=== PATIENT | female | born 1955 | race Caucasian/White ===

== ENCOUNTER 2016-09-27 13:25 | Outpatient (CLI) | payer BC, OTHER | END 2016-09-27 23:59 | DX: E78.2 Mixed hyperlipidemia (principal); Z79.899 Other long term (current) drug therapy ==

== ENCOUNTER 2016-10-17 13:12 | Outpatient (CLI) | payer OTHER | END 2016-10-17 13:13 | disposition home or self-care (01) | DX: M77.31 Calcaneal spur, right foot (principal) ==

== ENCOUNTER 2017-05-28 13:01 | Outpatient (CLI) | payer OTHER ==
[2017-05-28 13:13] LABS: BASOPHILS # (AUTO) 0.1 10^3/uL (0.0-0.1); BASOPHILS % (AUTO) 1.2 %; EOSINOPHILS # (AUTO) 0.4 10^3/uL (0.0-0.7); EOSINOPHILS % (AUTO) 7.4 %; HCT - HEMATOCRIT 42.1 % (37.0-47.0); HGB - HEMOGLOBIN 14.2 g/dL (12.0-16.0); LYMPHOCYTES # (AUTO) 1.5 10^3/uL (1.5-3.5); LYMPHOCYTES % (AUTO) 27.3 %; MEAN CORPUSCULAR HEMOGLOBIN 31.3 pg (27.0-31.0); MEAN CORPUSCULAR HGB CONC 33.7 g/dL (32.0-36.0); MEAN CORPUSCULAR VOLUME 92.9 fL (81.0-99.0); MEAN PLATELET VOLUME 8.1 fL (7.9-10.8); MONOCYTES # (AUTO) 0.4 10^3/uL (0.0-1.0); NEUTROPHILS % (AUTO) 57.1 %; NUCLEATED RED BLOOD CELLS AUTO 0.1 /100WBC; RED BLOOD COUNT 4.53 10^6/uL (4.20-5.40); RED CELL DISTRIBUTION WIDTH 13.2 % (12.0-15.0); UNCORRECTED WHITE BLOOD COUNT 5.3 x10^3/uL; WHITE BLOOD COUNT 5.3 x10^3/uL (4.8-10.8)
[2017-05-28 13:39] LABS: ALBUMIN/GLOBULIN RATIO 1.5 (1.0-2.2); BILIRUBIN,TOTAL 0.4 mg/dL (0.2-1.0); BUN - BLOOD UREA NITROGEN 11 mg/dL (6-20); CALCIUM 9.4 mg/dL (8.5-10.3); CARBON DIOXIDE - CO2 25 mmol/L (21-32); CHLORIDE 102 mmol/L (101-111); CHOL/HDL RATIO 5.2 (<4.4); CHOLESTEROL 324 mg/dL; CREATININE 0.6 mg/dL (0.4-1.0); GFR - MDRD 102 (>89); GLUCOSE 83 mg/dL (70-100); HDL CHOLESTEROL 62 mg/dL; LDL/HDL RATIO 3.3 (<4.4); POTASSIUM 3.9 mmol/L (3.5-5.0); SODIUM 137 mmol/L (135-145); TOTAL PROTEIN 7.2 g/dL (6.7-8.2); TRIGLYCERIDES 291 mg/dL; VLDL CHOLESTEROL 58 mg/dL
== END 2017-05-28 13:02 | disposition home or self-care (01) ==
LOC: LAB.R 13:01
PROVIDERS: ATTEND Physician Assistant Medical
DX: E55.9 Vitamin D deficiency, unspecified (principal); Z79.899 Other long term (current) drug therapy; I10 Essential (primary) hypertension; E78.2 Mixed hyperlipidemia; Z11.59 Encounter for screening for other viral diseases; E03.9 Hypothyroidism, unspecified
CPT/HCPCS: 80053; 80061; 82306; 84443; 85025; 86803

== ENCOUNTER 2017-08-01 09:32 | Outpatient (CLI) | payer OTHER | END 2017-08-01 09:33 | disposition home or self-care (01) | LOC: LAB.R 09:32 | PROVIDERS: ATTEND Physician Assistant Medical | DX: E03.9 Hypothyroidism, unspecified (principal); Z79.899 Other long term (current) drug therapy | CPT/HCPCS: 84443 ==

== ENCOUNTER → 2018-06-09 | Outpatient (CLI) | payer OTHER ==
[2018-06-09 14:18] LABS: BASOPHILS # (AUTO) 0.1 10^3/uL (0.0-0.1); EOSINOPHILS # (AUTO) 0.4 10^3/uL (0.0-0.7); EOSINOPHILS % (AUTO) 7.9 %; HGB - HEMOGLOBIN 13.5 g/dL (12.0-16.0); LYMPHOCYTES # (AUTO) 1.5 10^3/uL (1.5-3.5); LYMPHOCYTES % (AUTO) 28.5 %; MEAN CORPUSCULAR HEMOGLOBIN 31.4 pg (27.0-31.0); MEAN CORPUSCULAR HGB CONC 34.5 g/dL (32.0-36.0); MEAN PLATELET VOLUME 7.6 fL (7.9-10.8); MONOCYTES # (AUTO) 0.5 10^3/uL (0.0-1.0); MONOCYTES % (AUTO) 9.2 %; NEUTROPHILS # (AUTO) 2.9 10^3/uL (1.5-6.6); NEUTROPHILS % (AUTO) 53.4 %; PLT - PLATELET COUNT 354 10^3/uL (130-450); RED CELL DISTRIBUTION WIDTH 12.6 % (12.0-15.0); WHITE BLOOD COUNT 5.4 x10^3/uL (4.8-10.8)
[2018-06-09 14:36] LABS: ALBUMIN/GLOBULIN RATIO 1.4 (1.0-2.2); ALKALINE PHOSPHATASE 64 IU/L (42-121); ALT ALANINE AMINOTRANSFERASE 44 IU/L (10-60); AST ASPARTATE AMINOTRANSFERASE 25 IU/L (10-42); BILIRUBIN,TOTAL 0.6 mg/dL (0.2-1.0); BUN - BLOOD UREA NITROGEN 18 mg/dL (6-20); CALCIUM 9.3 mg/dL (8.5-10.3); CARBON DIOXIDE - CO2 29 mmol/L (21-32); CHLORIDE 104 mmol/L (101-111); CHOL/HDL RATIO 4.9 (<4.4); CHOLESTEROL 277 mg/dL; CREATININE 0.5 mg/dL (0.4-1.0); GFR - MDRD 125 (>89); GLUCOSE 86 mg/dL (70-100); HDL CHOLESTEROL 56 mg/dL; LDL CHOLESTEROL,CALCULATED 179 mg/dL; LDL/HDL RATIO 3.2 (<4.4); SODIUM 140 mmol/L (135-145); TOTAL PROTEIN 6.8 g/dL (6.7-8.2); VLDL CHOLESTEROL 42 mg/dL
== END ==
LOC: LAB.R 08:30
PROVIDERS: ATTEND Physician Assistant Medical
DX: Z00.00 Encounter for general adult medical examination without abnormal findings (principal); E55.9 Vitamin D deficiency, unspecified; Z79.899 Other long term (current) drug therapy; E03.9 Hypothyroidism, unspecified
CPT/HCPCS: 80053; 80061; 82306; 83721; 84443; 85025

== ENCOUNTER 2018-07-10 08:00 | Outpatient (CLI) | payer OTHER ==
[2018-07-10 12:25] LABS: ALT ALANINE AMINOTRANSFERASE 29 IU/L (10-60); AST ASPARTATE AMINOTRANSFERASE 21 IU/L (10-42); LDL CHOLESTEROL,DIRECT 142 mg/dL
== END 2018-07-10 23:59 | disposition home or self-care (01) ==
LOC: LAB.R 08:00
PROVIDERS: ATTEND Physician Assistant Medical
DX: E78.2 Mixed hyperlipidemia (principal); Z79.899 Other long term (current) drug therapy; E03.9 Hypothyroidism, unspecified
CPT/HCPCS: 83721; 84443; 84450; 84460

== ENCOUNTER 2018-08-16 20:39 | Emergency (ER) | payer OTHER ==
[2018-08-16 20:55] VITALS: BP 147/79
--- NOTE | 2018-08-16 21:24 | ED Physician Documentation ---
PD HPI LOWER EXT INJURY - Stated complaint Stated Complaint: L KNEE PX/FALL - Chief complaint Chief Complaint: Trauma Ext - History obtained from History obtained from: Patient - History of Present Illness PD HPI LOW EXT INJURY LOCATION: Other (She tripped over her dog's leash this evening and landed knees first onto a hardwood floor with left greater than right knee pain but she is able to walk and bear weight but there is a lot of swelling to the left knee. No other injuries.) Review of Systems Constitutional: reports: Reviewed and negative Cardiac: reports: Reviewed and negative Respiratory: reports: Reviewed and negative PD PAST MEDICAL HISTORY - Past Medical History HEENT: None - Present Medications Home Medications: Ambulatory Orders Medication Instructions Recorded Confirmed Aspirin [Floresita Chewable] 81 mg PO DAILY 05/05/14 05/05/14 Cholecalciferol (Vitamin D3) 2,000 unit PO DAILY 05/05/14 05/05/14 [Vitamin D3] Loratadine [Claritin] 10 mg PO DAILY 05/05/14 05/05/14 Multivit-Min/FA/Lycopene/Lut 1 each PO DAILY 05/05/14 05/05/14 [Centrum Silver Tablet] Mcclure-3 Fatty Acids [Fish Oil] 500 mg PO DAILY 05/05/14 05/05/14 RX: Lovastatin 20 mg PO DAILY 05/05/14 05/05/14 Fluticasone [Flonase] 2 sprays EDITH BID 05/06/14 05/06/14 Levothyroxine [Synthroid] 150 mcg PO QDAC 05/06/14 05/06/14 RX: Potassium 99 mg PO DAILY 05/06/14 05/06/14 - Allergies Allergies/Adverse Reactions: Allergies Allergy/AdvReac Type Severity Reaction Status Date / Time No Known Drug Allergies Allergy Verified 05/05/14 13:27 PD ED PE NORMAL - Vitals Vital signs reviewed: Yes - General General: Alert and oriented X 3, No acute distress - Extremities Extremities: Other (Right knee is mildly tender over the medial joint line without ligamentous laxity. Left knee has a large prepatellar bursal effusion with underlying patellar tenderness and some pain with range of motion but no ligamentous laxity.) - Neuro Neuro: Alert and oriented X 3, Normal speech Results - Vitals Vitals: Vital Signs - 24 hr 08/16/18 20:52 Temperature 36.4 C L Heart Rate 89 Respiratory 16 Rate Blood Pressure 147/79 H O2 Saturation 99 Oxygen O2 Source Room air - Rads (name of study) B knee 4v Radiology: EMP read contemporaneously (Left knee bursal effusion without fracture) Departure - Departure Disposition: 01 Home, Self Care Clinical Impression: Contusion of right knee, Contusion of left knee Condition: Good Record reviewed to determine appropriate education?: Yes Instructions: ED Contusion Soft Tissue Comments: Call your doctor to arrange a follow-up appointment, make the next available appointment. In the interim, return anytime if worse or if new symptoms develop. Your blood pressure was elevated today on check into the emergency department. This does not mean that you have hypertension, it is a common phenomenon to come to the emergency department and have elevated blood pressure. I recommend that you see your primary care physician within the week to have it rechecked when you are feeling better. Discharge Date/Time: 08/16/18 22:30
--- NOTE | 2018-08-16 22:09 | XRAY Report ---
Reason: knee inj Procedure Date: 08/16/2018 Accession Number: [id number] / [id number] Procedure: XR - Knee 4 View BILAT CPT Code: FULL RESULT: EXAMS: 1. Right Knee Radiography 2. Left Knee Radiography EXAM DATE:08/16/2018 09:39 PM. CLINICAL HISTORY:Bilateral knee pain, left greater than right, after ground-level fall today. Left knee swelling. COMPARISON: None. TECHNIQUE: 4 views each. FINDINGS: Right Knee: Bones: Suprapatellar and infrapatellar spurs. No fracture or bone lesion. Joints: Normal alignment. Minimal osteophytosis in the medial compartment. Joint spaces are maintained. No effusion. Soft Tissues: No evident focal soft tissue swelling. Left Knee: Bones: Suprapatellar spur. No fracture or bone lesion. Joints: Normal alignment. Minimal osteophytosis in the medial compartment. Joint spaces are maintained. No effusion. Soft Tissues: Prepatellar soft tissue swelling. IMPRESSION: 1. Left prepatellar soft tissue swelling, which could represent posttraumatic bursitis. 2. Minimal degenerative changes in the medial compartments bilaterally. 3. No acute bony abnormality. RADIA
[2018-08-16] MEDS ORDERED: HYDROcod/ACET 5/325 Prepack 4 PO STA (22:18)
== END 2018-08-16 22:30 | disposition home or self-care (01) ==
LOC: ED 20:39
DX: S80.02XA Contusion of left knee, initial encounter (principal); S80.01XA Contusion of right knee, initial encounter; W01.0XXA Fall on same level from slipping, tripping and stumbling without subsequent striking against object, initial encounter; R03.0 Elevated blood-pressure reading, without diagnosis of hypertension
CPT/HCPCS: 99282; 99283

== ENCOUNTER 2018-08-25 08:00 | Outpatient (CLI) | payer OTHER ==
[2018-08-25 15:43] LABS: ALT ALANINE AMINOTRANSFERASE 25 IU/L (10-60); AST ASPARTATE AMINOTRANSFERASE 18 IU/L (10-42); CHOL/HDL RATIO 3.5 (<4.4); CHOLESTEROL 227 mg/dL; HDL CHOLESTEROL 65 mg/dL; LDL CHOLESTEROL,CALCULATED 132 mg/dL; VLDL CHOLESTEROL 30 mg/dL
== END 2018-08-25 23:59 | disposition home or self-care (01) ==
LOC: LAB.R 08:00
PROVIDERS: ATTEND Physician Assistant Medical
DX: Z79.899 Other long term (current) drug therapy (principal); E78.2 Mixed hyperlipidemia
CPT/HCPCS: 80061; 83721; 84443; 84450; 84460

== ENCOUNTER 2019-07-24 09:12 | Outpatient (CLI) | payer OTHER ==
[2019-07-24 09:48] LABS: BASOPHILS # (AUTO) 0.1 10^3/uL (0.0-0.1); BASOPHILS % (AUTO) 0.8 %; EOSINOPHILS # (AUTO) 0.7 10^3/uL (0.0-0.7); EOSINOPHILS % (AUTO) 11.6 %; HGB - HEMOGLOBIN 14.1 g/dL (12.0-16.0); LYMPHOCYTES # (AUTO) 1.4 10^3/uL (1.5-3.5); LYMPHOCYTES % (AUTO) 22.5 %; MEAN CORPUSCULAR HEMOGLOBIN 31.8 pg (27.0-31.0); MEAN CORPUSCULAR HGB CONC 33.2 g/dL (32.0-36.0); MEAN CORPUSCULAR VOLUME 95.9 fL (81.0-99.0); MEAN PLATELET VOLUME 9.4 fL (7.9-10.8); MONOCYTES # (AUTO) 0.5 10^3/uL (0.0-1.0); MONOCYTES % (AUTO) 7.4 %; NEUTROPHILS # (AUTO) 3.5 10^3/uL (1.5-6.6); NEUTROPHILS % (AUTO) 57.5 %; PLT - PLATELET COUNT 358 10^3/uL (130-450); RED BLOOD COUNT 4.43 10^6/uL (4.20-5.40); RED CELL DISTRIBUTION WIDTH 12.4 % (12.0-15.0); WHITE BLOOD COUNT 6.1 x10^3/uL (4.8-10.8)
[2019-07-24 10:10] LABS: ALBUMIN 4.5 g/dL (3.2-5.5); ALBUMIN/GLOBULIN RATIO 1.6 (1.0-2.2); ALKALINE PHOSPHATASE 54 IU/L (42-121); ALT ALANINE AMINOTRANSFERASE 28 IU/L (10-60); AST ASPARTATE AMINOTRANSFERASE 19 IU/L (10-42); BILIRUBIN,TOTAL 0.7 mg/dL (0.2-1.0); BUN - BLOOD UREA NITROGEN 18 mg/dL (6-20); CALCIUM 9.3 mg/dL (8.5-10.3); CARBON DIOXIDE - CO2 29 mmol/L (21-32); CHLORIDE 103 mmol/L (101-111); CHOL/HDL RATIO 3.3 (<4.4); CHOLESTEROL 197 mg/dL; CREATININE 0.7 mg/dL (0.4-1.0); GFR - MDRD 85 (>89); GLUCOSE 104 mg/dL (70-100); HDL CHOLESTEROL 60 mg/dL; LDL CHOLESTEROL,CALCULATED 118 mg/dL; SODIUM 139 mmol/L (135-145); TOTAL PROTEIN 7.3 g/dL (6.7-8.2); VLDL CHOLESTEROL 19 mg/dL
[2019-07-24 11:22] LABS: FREE T4 (FREE THYROXINE) 1.21 ng/dL (0.58-1.64)
== END 2019-07-24 09:13 | disposition home or self-care (01) ==
LOC: LAB 09:12
PROVIDERS: ATTEND Nurse Practitioner
DX: E55.9 Vitamin D deficiency, unspecified (principal); Z79.899 Other long term (current) drug therapy; E03.9 Hypothyroidism, unspecified; I10 Essential (primary) hypertension; E78.2 Mixed hyperlipidemia
CPT/HCPCS: 36415; 80053; 80061; 82306; 83721; 84439; 84443; 85025

== ENCOUNTER 2019-10-02 08:28 | Outpatient (CLI) | payer OTHER ==
--- NOTE | 2019-10-02 15:35 | XRAY Report ---
Reason: RADICULOPATHY,PAIN IN LEFT SHOUDER Procedure Date: 10/02/2019 Accession Number: [id number] / [id number] Procedure: XR - Cervical Spine 2 View CPT Code: Final Report FULL RESULT: EXAM: CERVICAL SPINE RADIOGRAPHY EXAM DATE: 10/02/2019 08:49 AM. CLINICAL HISTORY: Radiculopathy, pain in left shouder. Pain going down the left arm for 2 months. Tingling in the fingers. COMPARISONS: None. TECHNIQUE: 3 views. Frontal, odontoid, lateral. FINDINGS: Alignment: Normal. No spondylolisthesis or scoliosis. Bones: The cervical vertebral bodies and posterior elements are well visualized from the skull base C7. The cervicothoracic junction and upper thoracic spine is partially obscured on lateral film. No fractures or bone lesions. Disks: Disk space narrowing with patchy endplate sclerosis and anterior osteophyte formation is seen at C3-C4, C4-C5, and C5-C6. Degenerative uncovertebral change is seen from C3-C4 through C6-C7 bilaterally. Facets: No degenerative disease. Soft Tissues: Vascular calcifications are seen in the left carotid bifurcation.. No prevertebral soft tissue swelling. The visualized lung apices are clear. IMPRESSION: 1. Spondylosis in the cervical spine as noted above. Degenerative disk change is seen from C3-C4 through C5-C6. Degenerative uncovertebral change is seen from C3-C4 through C6-C7. RADIA
--- NOTE | 2019-10-02 21:11 | XRAY Report ---
Reason: RADICULOPATHY,PAIN IN LEFT SHOUDER Procedure Date: 10/02/2019 Accession Number: [id number] / [id number] Procedure: XR - Shoulder 2 View LT CPT Code: Final Report FULL RESULT: EXAM: LEFT SHOULDER RADIOGRAPHY EXAM DATE: 10/02/2019 08:49 AM. CLINICAL HISTORY: Radiculopathy, pain in the left shoulder. COMPARISON: None. TECHNIQUE: 2 views. FINDINGS: Bones: No acute fracture is demonstrated. Joints: No dislocation or subluxation. There is mild joint space narrowing and spurring at the acromioclavicular joint. Soft tissues: No periarticular calcifications. No focal soft tissue swelling. Visualized portions of the lungs are clear. IMPRESSION: 1. No acute osseous or articular abnormality. 2. Mild DJD at the left acromioclavicular joint. RADIA
== END 2019-10-02 08:29 | disposition home or self-care (01) ==
LOC: DI 08:28
PROVIDERS: ATTEND Nurse Practitioner
DX: M50.31 Other cervical disc degeneration, high cervical region (principal); M47.812 Spondylosis without myelopathy or radiculopathy, cervical region; M19.012 Primary osteoarthritis, left shoulder
CPT/HCPCS: 72040

== ENCOUNTER 2020-05-25 08:00 | Outpatient (CLI) | payer OTHER ==
--- NOTE | 2020-05-25 17:01 | XRAY Report ---
PROCEDURE: Foot 3 View LT INDICATIONS: L FOOT PAIN TECHNIQUE: 3 views of the foot were acquired. COMPARISON: No prior images are currently available for comparison. FINDINGS: Bones: No fractures or dislocations. No suspicious bony lesions. Calcaneal spur is present. Scatte red IP and midfoot degenerative change. Soft tissues: No tibiotalar joint effusion. Achilles tendon appears normal. IMPRESSION: No visualized acute fracture or dislocation. However, occult injury cannot be excluded. Recommend donell rt interval imaging follow-up in 7-10 days as clinically indicated for additional evaluation. Reviewed by: Diane Everett MD on 05/25/2020 5:00 PM PDT Approved by: Diane Everett MD on 05/25/2020 5:00 PM PDT Station ID: [id number]
== END 2020-05-25 08:01 | disposition home or self-care (01) ==
LOC: DI.WCP 08:00
PROVIDERS: ATTEND Nurse Practitioner
DX: M79.672 Pain in left foot (principal)

== ENCOUNTER 2020-09-06 07:54 | Outpatient (CLI) | payer OTHER ==
[2020-09-06 12:00] LABS: BASOPHILS # (AUTO) 0.1 10^3/uL (0.0-0.1); BASOPHILS % (AUTO) 1.1 %; EOSINOPHILS # (AUTO) 0.3 10^3/uL (0.0-0.7); EOSINOPHILS % (AUTO) 5.2 %; HGB - HEMOGLOBIN 14.7 g/dL (12.0-16.0); LYMPHOCYTES # (AUTO) 1.7 10^3/uL (1.5-3.5); LYMPHOCYTES % (AUTO) 27.2 %; MEAN CORPUSCULAR HGB CONC 32.2 g/dL (32.0-36.0); MEAN CORPUSCULAR VOLUME 96.4 fL (81.0-99.0); MEAN PLATELET VOLUME 10.1 fL (7.9-10.8); MONOCYTES # (AUTO) 0.5 10^3/uL (0.0-1.0); MONOCYTES % (AUTO) 7.3 %; NEUTROPHILS # (AUTO) 3.8 10^3/uL (1.5-6.6); NEUTROPHILS % (AUTO) 58.9 %; PLT - PLATELET COUNT 360 10^3/uL (130-450); RED BLOOD COUNT 4.74 10^6/uL (4.20-5.40); RED CELL DISTRIBUTION WIDTH 12.4 % (12.0-15.0); WHITE BLOOD COUNT 6.4 x10^3/uL (4.8-10.8)
[2020-09-06 12:29] LABS: ALBUMIN 4.9 g/dL (3.2-5.5); ALBUMIN/GLOBULIN RATIO 1.9 (1.0-2.2); ALKALINE PHOSPHATASE 74 IU/L (42-121); ALT ALANINE AMINOTRANSFERASE 24 IU/L (10-60); AST ASPARTATE AMINOTRANSFERASE 20 IU/L (10-42); BILIRUBIN,TOTAL 0.5 mg/dL (0.2-1.0); BUN - BLOOD UREA NITROGEN 19 mg/dL (6-20); CALCIUM 9.7 mg/dL (8.5-10.3); CARBON DIOXIDE - CO2 26 mmol/L (21-32); CHLORIDE 104 mmol/L (101-111); CHOL/HDL RATIO 2.6 (<4.4); CHOLESTEROL 160 mg/dL; GLUCOSE 111 mg/dL (70-100); HDL CHOLESTEROL 62 mg/dL; LDL CHOLESTEROL,CALCULATED 78 mg/dL; LDL/HDL RATIO 1.3 (<4.4); TOTAL PROTEIN 7.5 g/dL (6.7-8.2); VLDL CHOLESTEROL 20 mg/dL
== END 2020-09-06 23:59 | disposition home or self-care (01) ==
LOC: LAB.WCP 07:54
PROVIDERS: ATTEND Nurse Practitioner
DX: E55.9 Vitamin D deficiency, unspecified (principal); E03.9 Hypothyroidism, unspecified; Z79.899 Other long term (current) drug therapy; I10 Essential (primary) hypertension; E78.2 Mixed hyperlipidemia
CPT/HCPCS: 36415; 80053; 80061; 82306; 83721; 84443; 85025

== ENCOUNTER 2020-11-22 08:03 | Outpatient (CLI) | payer OTHER ==
[2020-11-22 12:48] LABS: THYROID STIMULATING HORMONE 1.74 uIU/mL (0.34-5.60)
[2020-11-22 12:51] LABS: FREE T3 2.8 pg/mL (2.5-3.9); FREE T4 (FREE THYROXINE) 0.9 ng/dL (0.58-1.64)
== END 2020-11-22 23:59 | disposition home or self-care (01) ==
LOC: LAB.WCP 08:03
PROVIDERS: ATTEND Nurse Practitioner
DX: F41.9 Anxiety disorder, unspecified (principal); E55.9 Vitamin D deficiency, unspecified; E03.9 Hypothyroidism, unspecified; F41.8 Other specified anxiety disorders; M54.5 Low back pain; L65.9 Nonscarring hair loss, unspecified; F32.9 Major depressive disorder, single episode, unspecified; G89.29 Other chronic pain; M54.10 Radiculopathy, site unspecified
CPT/HCPCS: 36415; 82306; 82607; 84439; 84443; 84481

== ENCOUNTER 2021-03-28 14:07 | Outpatient (CLI) | payer OTHER ==
[2021-03-28 18:16] LABS: BASOPHILS # (AUTO) 0.1 10^3/uL (0.0-0.1); BASOPHILS % (AUTO) 0.9 %; EOSINOPHILS # (AUTO) 0.3 10^3/uL (0.0-0.7); EOSINOPHILS % (AUTO) 4.5 %; HCT - HEMATOCRIT 45.6 % (37.0-47.0); HGB - HEMOGLOBIN 14.4 g/dL (12.0-16.0); LYMPHOCYTES # (AUTO) 1.6 10^3/uL (1.5-3.5); LYMPHOCYTES % (AUTO) 23.3 %; MEAN CORPUSCULAR HEMOGLOBIN 30.4 pg (27.0-31.0); MEAN CORPUSCULAR HGB CONC 31.6 g/dL (32.0-36.0); MEAN CORPUSCULAR VOLUME 96.2 fL (81.0-99.0); MEAN PLATELET VOLUME 9.8 fL (7.9-10.8); MONOCYTES # (AUTO) 0.5 10^3/uL (0.0-1.0); NEUTROPHILS # (AUTO) 4.2 10^3/uL (1.5-6.6); PLT - PLATELET COUNT 380 10^3/uL (130-450); RED BLOOD COUNT 4.74 10^6/uL (4.20-5.40); RED CELL DISTRIBUTION WIDTH 12.6 % (12.0-15.0); WHITE BLOOD COUNT 6.7 x10^3/uL (4.8-10.8)
[2021-03-28 18:56] LABS: ALBUMIN 4.3 g/dL (3.2-5.5); ALBUMIN/GLOBULIN RATIO 1.5 (1.0-2.2); BILIRUBIN,TOTAL 0.5 mg/dL (0.2-1.0); CALCIUM 9.2 mg/dL (8.5-10.3); CREATININE 0.7 mg/dL (0.4-1.0); POTASSIUM 3.6 mmol/L (3.5-5.0); TOTAL PROTEIN 7.1 g/dL (6.7-8.2)
[2021-03-28 19:10] LABS: THYROID STIMULATING HORMONE 6.73 uIU/mL (0.34-5.60)
[2021-03-28 19:11] LABS: FREE T3 2.85 pg/mL (2.5-3.9)
[2021-03-28 19:12] LABS: FREE T4 (FREE THYROXINE) 0.8 ng/dL (0.58-1.64)
== END 2021-03-28 23:59 | disposition home or self-care (01) ==
LOC: LAB.WCP 14:07
PROVIDERS: ATTEND Nurse Practitioner
DX: R53.83 Other fatigue (principal); E03.9 Hypothyroidism, unspecified
CPT/HCPCS: 36415; 80053; 84439; 84443; 84481; 85025

== ENCOUNTER 2021-06-29 18:38 | Emergency (ER) | payer OTHER ==
[2021-06-29 18:44] VITALS: BP 147/107
--- NOTE | 2021-06-29 19:46 | ED Physician Documentation ---
History of Present Illness - Stated complaint Stated Complaint: BILAT FEET SWOLLEN - Chief complaint Chief Complaint: Ext Problem - History obtained from History obtained from: Patient - History of Present Illness Timing: Today, How many hours ago (10) Pain level max: 6 Pain level now: 5 - Additonal information Additional information: Patient is a 66-year-old female who fell down the stairs earlier today at home injuring her bilateral ankles and bilateral feet. Worse with movement, better with rest. No head, neck, back pain. No loss of consciousness. No vomiting. Review of Systems Ten Systems: 10 systems reviewed and negative Constitutional: denies: Fever GI: denies: Vomiting, Diarrhea Skin: denies: Rash Musculoskeletal: denies: Neck pain, Back pain Neurologic: denies: Headache, Head injury, LOC PD PAST MEDICAL HISTORY - Past Medical History Past Medical History: Yes MACHINE ROUGH ROUNDER: Breast cancer HEENT: None - Past Surgical History Past Surgical History: Yes General: Appendectomy /MACHINE ROUGH ROUNDER: Hysterectomy - Present Medications Home Medications: Ambulatory Orders Medication Instructions Recorded Confirmed Aspirin [Floresita Chewable] 81 mg PO DAILY 05/05/14 06/29/21 Cholecalciferol (Vitamin D3) 2,000 unit PO DAILY 05/05/14 06/29/21 [Vitamin D3] Loratadine [Claritin] 10 mg PO DAILY 05/05/14 06/29/21 Lovastatin 20 mg PO DAILY 05/05/14 06/29/21 Multivit-Min/FA/Lycopene/Lut 1 each PO DAILY 05/05/14 06/29/21 [Centrum Silver Tablet] Fluticasone [Flonase] 2 sprays EDITH BID 05/06/14 06/29/21 Levothyroxine [Synthroid] 150 mcg PO QDAC 05/06/14 06/29/21 HYDROcod/ACETAM 5/325 [Elton 5/325] 1 - 2 ea PO Q6H PRN #14 tablet 06/29/21 - Allergies Allergies/Adverse Reactions: Allergies Allergy/AdvReac Type Severity Reaction Status Date / Time No Known Drug Allergies Allergy Verified 06/29/21 18:44 - Social History Does the pt smoke?: No Smoking Status: Never smoker Does the pt drink ETOH?: No Does the pt have substance abuse?: No - Immunizations Immunizations are current?: Yes - POLST Patient has POLST: No PD ED PE NORMAL - Vitals Vital signs reviewed: Yes - General General: Alert and oriented X 3, No acute distress - HEENT HEENT: Moist mucous membranes - Neck Neck: Supple, no meningeal sign - Cardiac Cardiac: RRR, Strong equal pulses - Respiratory Respiratory: No respiratory distress, Clear bilaterally - Abdomen Abdomen: Soft, Non tender, Non distended - Derm Derm: Warm and dry - Extremities Extremities: Other (Mild tenderness to palpation bilateral malleoli on the bilateral ankles. Tender over the dorsum of the right foot, there is tenderness and ecchymosis over the distal aspect of the dorsum of the left foot. Neurovascular intact bilaterally.) - Neuro Neuro: Alert and oriented X 3 - Psych Psych: Normal mood, Normal affect Results - Vitals Vitals: Oxygen O2 Source Room air - Rads (name of study) Bilateral ankle x-ray Radiology: Final report received, EMP read contemporaneously, See rad report (1. Probable small avulsion fracture fragments along the lateral aspect of the calcaneus. ) Bilateral foot x-ray Radiology: Final report received, EMP read contemporaneously, See rad report (1. Fractures of the left second through fourth metatarsals and fifth proximal phalanx as described.) Procedures - Splint (location) LLE Splint applied by: Physician, Tech Type of splint: Fiberglass, Short leg, Posterior Other: Patient tolerated well, No complications, Neurovascular intact, Crutches provided PD MEDICAL DECISION MAKING - ED course Complexity details: reviewed results, re-evaluated patient, considered differential, d/w patient ED course: 66-year-old female with second through fourth metatarsal fractures of the left foot as well as the fifth proximal phalanx. She has no tenderness near where the possible avulsion fracture is on the ankle x-rays. Placed in a gel splint on the right for ankle sprain and given crutches. Placed in a fiberglass splint on the left for the metatarsal fractures. Hopefully she will be able to be changed into a walking boot within a week. We will have her follow-up with orthopedics for further care. I am prescribing a short course of short-acting opioid pain medication for this patient. I have reviewed the patients DOUBLE END PRODUCTION GRINDER and no concerning findings were noted. I have discussed that the opioids are for short term therapy only, and will not be refilled from the ED. patient counseled regarding signs and symptoms for which I believe and urgent re-evaluation would be necessary. Patient with good understanding of and agreement to plan and is comfortable going home at this time This document was made in part using voice recognition software. While efforts are made to proofread this document, sound alike and grammatical errors may occur. Departure - Departure Disposition: 01 Home, Self Care Clinical Impression: Metatarsal bone fracture Qualifiers: Encounter type: initial encounter Metatarsal bone: unspecified metatarsal Fracture type: closed Fracture alignment: displaced Laterality: left Qualified Code(s): S92.302A - Fracture of unspecified metatarsal bone(s), left foot, initial encounter for closed fracture Sprain of right ankle Qualifiers: Encounter type: initial encounter Involved ligament of ankle: unspecified ligam ent Qualified Code(s): S93.401A - Sprain of unspecified ligament of right ankle, initial encounter Condition: Good Instructions: ED Fx Foot, ED Sprain Ankle Follow-Up: Bozena Alvares ARNP [Primary Care Provider] - Within 1 week [facility] [Provider Group] - Within 1 week Prescriptions: HYDROcod/ACETAM 5/325 [Elton 5/325] 1 - 2 ea PO Q6H PRN #14 tablet PRN Reason: Pain Comments: Please follow-up with orthopedics within 1 week for further care. They may be able to change you to a walking boot at that time. Your prescriptions were sent to [facility] in [place]. I am prescribing a short course of narcotic pain medication for you. These are potentially dangerous and addictive medications that should be used carefully. These medications may constipate you. Take an auwi-olk-jjhliyo stool softener (docusate) twice daily with plenty of water while taking these medications. If you go 24 hours without a bowel movement, take gnwv-kfe-kkvybtp miralax, per package instructions. Do not drink or drive while taking these medications. If you received narcotic or sedating medications while in the emergency department, do not drive for 24 hours. Store this medication in a safe, secure place and out of reach of children. It is a violation of federal law to give or sell this medication to another person or to use in a manner other than prescribed. The ED will not refill narcotic prescriptions, including prescriptions lost or stolen. To dispose of unwanted medications: 1. [facility] at [address] in [place] has a medication drop box. They accept prescription medications (in pill form) Saturday through Saturday 9:00 a.m. to 5:00 p.m. 2. The [facility] accepts prescription medications (in pill form only) for disposal year round. Call for more information. 3. Contact the [facility] for the next [facility] sponsored prescription drug collection event. , [phone], or [phone]; Discharge Date/Time: 06/29/21 22:50
--- NOTE | 2021-06-29 21:31 | XRAY Report ---
PROCEDURE: Foot 3 View BILAT INDICATIONS: fall, B foot/ankle pain TECHNIQUE: 3 views of each foot were acquired. COMPARISON: Left foot x-ray 05/25/2020. FINDINGS: Bones: Left foot: There are mildly displaced fractures within the third and fourth metatarsal necks. There i s associated slight inferior relation. There is also a minimally displaced fracture within the distal shaft of the second metatarsal. A mildly displaced fracture is demonstrated medially at the base of the fifth proximal phalanx. No dislocations. There is mild degeneration of the first metatarsophalang eal and the interphalangeal joints. Right foot: No definite fracture or dislocation. There is mild degeneration at the first metatarsopha langeal and the interphalangeal joints. Soft tissues: No tibiotalar joint effusion. No suspicious soft tissue calcifications. IMPRESSION: 1. Fractures of the left second through fourth metatarsals and fifth proximal phalanx as described. Reviewed by: Jp Childs MD on 06/29/2021 9:29 PM PST Approved by: Jp Childs MD on 06/29/2021 9:29 PM PST Station ID: [id number]
--- NOTE | 2021-06-29 21:52 | XRAY Report ---
PROCEDURE: Ankle 3 View BILAT INDICATIONS: fall, B foot/ankle pain TECHNIQUE: 3 views of each ankle were acquired. COMPARISON: Concurrent study of the bilateral feet. FINDINGS: Bones: Right: There are small linear ossicles along the lateral aspect of the calcaneus suggestive of small avulsion fractures. Elsewhere, no fracture or dislocation. There are small posterior and plantar crea anu enthesophytes. Left: No fracture or dislocation. There are small posterior and plantar calcaneal enthesophytes. Soft tissues: There is extensive periarticular soft tissue swelling around the right ankle most prom inent laterally inferior to the lateral malleolus. No definite tibiotalar joint effusion. IMPRESSION: 1. Probable small avulsion fracture fragments along the lateral aspect of the calcaneus. Reviewed by: Jp Childs MD on 06/29/2021 9:51 PM PST Approved by: Jp Childs MD on 06/29/2021 9:51 PM PST Station ID: [id number]
[2021-06-29] MEDS ORDERED: HYDROcod/ACETAM 5/325 MG TABLET PO STA (21:59)
== END 2021-06-29 22:50 | disposition home or self-care (01) ==
LOC: ED 18:38
DX: S92.322A Displaced fracture of second metatarsal bone, left foot, initial encounter for closed fracture (principal); S92.332A Displaced fracture of third metatarsal bone, left foot, initial encounter for closed fracture; S92.341A Displaced fracture of fourth metatarsal bone, right foot, initial encounter for closed fracture; S92.352A Displaced fracture of fifth metatarsal bone, left foot, initial encounter for closed fracture; S93.401A Sprain of unspecified ligament of right ankle, initial encounter; W10.9XXA Fall (on) (from) unspecified stairs and steps, initial encounter
CPT/HCPCS: 29505; 73610; 73630; 99283; A9270

== ENCOUNTER 2021-07-05 16:36 | Outpatient (CLI) | payer OTHER ==
--- NOTE | 2021-07-06 09:35 | CT Report ---
PROCEDURE: LOWER EXTREMITY WO - RT INDICATIONS: DISPLACED FX RIGHT CALCANEUS TECHNIQUE: Noncontrast 3 mm axial sections acquired of the right ankle, with coronal and sagittal reformats. COMPARISON: Correlation is made with foot and ankle plain films, 06/30/2021. FINDINGS: Image quality: Excellent. Bones: There is a comminuted fracture seen involving the anterior lateral aspect of the calcaneus, w hich can be seen on series 3 image 143 and on series 7 image 67. There is intra-articular involvement seen. Several tiny remote appearing fracture fragments are seen, which are attributed to remote avulsion in juries. No additional acute fractures can be seen. Age-appropriate degenerative changes are seen. Plantar and Achilles calcaneal spurs are seen. Soft tissues: Generalized soft tissue swelling can be seen, including involving the distal foot. IMPRESSION: Comminuted distal calcaneus fracture. Soft tissue swelling is seen. Reviewed by: Nathan Horn MD on 07/06/2021 8:33 AM [facility] Approved by: Nathan Horn MD on 07/06/2021 8:33 AM [facility] Station ID: [id number]
== END 2021-07-05 16:37 | disposition home or self-care (01) ==
LOC: DI 16:36
PROVIDERS: ATTEND Orthopaedic Surgery
DX: S92.001A Unspecified fracture of right calcaneus, initial encounter for closed fracture (principal)

== ENCOUNTER 2021-07-31 11:27 | Outpatient (CLI) | payer OTHER ==
--- NOTE | 2021-07-31 16:05 | XRAY Report ---
PROCEDURE: Foot 3 View BILAT INDICATIONS: DISPLACED FX OF R CALCANEUS, DISPLACED FX OF L 3RD METATARSAL TECHNIQUE: 6 views of the foot were acquired. COMPARISON: 06/29/[address] of right foot and ankle dated 07/05/2021 FINDINGS: Bones: There is interval healing at patient's known fracture involving lateral periphery of distal ca lcaneus adjacent to fifth TMT joint. Healing fracture involving left second through fourth metatarsal necks/distal shafts are again seen with slight lateral displacement and a dilatation at fracture sit es. No new fracture or dislocation. Forefoot and midfoot joint osteoarthritic changes are noted. No s uspicious bony lesions. Well-defined bilateral plantar and dorsal calcaneal enthesophytes are seen. Soft tissues: No tibiotalar joint effusion. Achilles tendon appears normal. IMPRESSION: 1. Healing fracture involving lateral aspect of right distal calcaneus. 2. Healing left second through fourth metatarsal shaft/neck fractures. 3. Stable alignment of bilateral feet. No new fracture or dislocation. Well-defined calcaneal entheso phytes. Reviewed by: Sascha Hunt MD on 07/31/2021 4:04 PM PST Approved by: Sascha Hunt MD on 07/31/2021 4:04 PM PST Station ID: [id number]
== END 2021-07-31 23:59 | disposition home or self-care (01) ==
LOC: DI.N 11:27
PROVIDERS: ATTEND Orthopaedic Surgery
DX: S92.05 Other extraarticular fracture of calcaneus (principal); S92.322D Displaced fracture of second metatarsal bone, left foot, subsequent encounter for fracture with routine healing; S92.332D Displaced fracture of third metatarsal bone, left foot, subsequent encounter for fracture with routine healing; S92.342D Displaced fracture of fourth metatarsal bone, left foot, subsequent encounter for fracture with routine healing

== ENCOUNTER 2021-08-22 08:44 | Outpatient (CLI) | payer OTHER ==
--- NOTE | 2021-08-22 11:12 | XRAY Report ---
PROCEDURE: Foot 3 View BILAT INDICATIONS: BILAT FOOT PAIN TECHNIQUE: 3 views of each foot were acquired. COMPARISON: 07/31/2021, 06/29/2021. Correlation is also made with CT, 07/05/2021. FINDINGS: Bones: There are again seen fractures of the distal aspects of the second, third, and fourth left met atarsals. Since the prior examination, there has been mild remodeling change, with periosteal reactio n. This patient has a known right distal calcaneus fracture, which is that was seen by plain film. No new fracture is seen. No fractures are seen on the right. Generalized degenerative changes are see n. Plantar and Achilles calcaneal spurs are seen. Soft tissues: No tibiotalar joint effusion. Achilles tendon appears normal. IMPRESSION: Mild interval healing changes of the fractures of the distal second, third, and fourth metatarsals on the left. The known right distal calcaneus fracture is that was seen by plain film. Reviewed by: Nathan Horn MD on 08/22/2021 10:11 AM [facility] Approved by: Nathan Horn MD on 08/22/2021 10:11 AM [facility] Station ID: [id number]
== END 2021-08-22 08:45 | disposition home or self-care (01) ==
LOC: DI.WOS 08:44
PROVIDERS: ATTEND Physician Assistant
DX: S92.322D Displaced fracture of second metatarsal bone, left foot, subsequent encounter for fracture with routine healing (principal); S92.332D Displaced fracture of third metatarsal bone, left foot, subsequent encounter for fracture with routine healing; S92.342D Displaced fracture of fourth metatarsal bone, left foot, subsequent encounter for fracture with routine healing; S92.001A Unspecified fracture of right calcaneus, initial encounter for closed fracture

== ENCOUNTER 2021-09-19 12:05 | Outpatient (CLI) | payer OTHER ==
--- NOTE | 2021-09-19 16:45 | XRAY Report ---
PROCEDURE: Foot 3 View BILAT INDICATIONS: BILAT FOOT FX TECHNIQUE: 4 views of the right foot were acquired. 3 views of the left foot. COMPARISON: Prior studies dating back to June 29, 2021. FINDINGS: BONES: Left: Less distinct fracture lines of the second, third, and fourth metatarsal fracture sites, compat ible with ongoing healing. Regional osteopenia. The remaining visualized osseous structures appear ma intained. Prominent dorsal and plantar calcaneal enthesophytes. Right: Regional osteopenia. No acute, displaced fracture. Prominent dorsal calcaneal enthesophyte. Re demonstrated avulsion fracture involving the lateral aspect of the anterior calcaneal process. SOFT TISSUES: No focal abnormality. IMPRESSION: 1.Ongoing healing of the patient's left second through fourth metatarsal fractures. Reviewed by: Олег Santizo MD on 09/19/2021 4:44 PM PST Approved by: Олег Santizo MD on 09/19/2021 4:44 PM PST Station ID: [id number]
== END 2021-09-19 12:06 | disposition home or self-care (01) ==
LOC: DI.WOS 12:05
PROVIDERS: ATTEND Physician Assistant
DX: S92.322D Displaced fracture of second metatarsal bone, left foot, subsequent encounter for fracture with routine healing (principal); S92.332D Displaced fracture of third metatarsal bone, left foot, subsequent encounter for fracture with routine healing; S92.342D Displaced fracture of fourth metatarsal bone, left foot, subsequent encounter for fracture with routine healing; M85.871 Other specified disorders of bone density and structure, right ankle and foot; M77.31 Calcaneal spur, right foot

== ENCOUNTER 2021-10-06 08:09 | Outpatient (CLI) | payer OTHER ==
[2021-10-06 12:08] LABS: BASOPHILS # (AUTO) 0.1 10^3/uL (0.0-0.1); EOSINOPHILS # (AUTO) 0.4 10^3/uL (0.0-0.7); EOSINOPHILS % (AUTO) 4.2 %; HCT - HEMATOCRIT 43.9 % (37.0-47.0); HGB - HEMOGLOBIN 14.2 g/dL (12.0-16.0); LYMPHOCYTES # (AUTO) 1.7 10^3/uL (1.5-3.5); LYMPHOCYTES % (AUTO) 20.3 %; MEAN CORPUSCULAR HEMOGLOBIN 30.6 pg (27.0-31.0); MEAN CORPUSCULAR HGB CONC 32.3 g/dL (32.0-36.0); MEAN CORPUSCULAR VOLUME 94.6 fL (81.0-99.0); MEAN PLATELET VOLUME 9.6 fL (7.9-10.8); MONOCYTES # (AUTO) 0.5 10^3/uL (0.0-1.0); MONOCYTES % (AUTO) 6.3 %; NEUTROPHILS # (AUTO) 5.7 10^3/uL (1.5-6.6); PLT - PLATELET COUNT 463 10^3/uL (130-450); RED BLOOD COUNT 4.64 10^6/uL (4.20-5.40); RED CELL DISTRIBUTION WIDTH 13.6 % (12.0-15.0); WHITE BLOOD COUNT 8.4 x10^3/uL (4.8-10.8)
[2021-10-06 12:56] LABS: ALBUMIN 4.6 g/dL (3.2-5.5); ALBUMIN/GLOBULIN RATIO 1.5 (1.0-2.2); ALKALINE PHOSPHATASE 76 IU/L (42-121); ALT ALANINE AMINOTRANSFERASE 47 IU/L (10-60); AST ASPARTATE AMINOTRANSFERASE 32 IU/L (10-42); BILIRUBIN,TOTAL 0.6 mg/dL (0.2-1.0); BUN - BLOOD UREA NITROGEN 15 mg/dL (6-20); CALCIUM 9.9 mg/dL (8.5-10.3); CARBON DIOXIDE - CO2 25 mmol/L (21-32); CHLORIDE 100 mmol/L (101-111); CHOL/HDL RATIO 3.3 (<4.4); CHOLESTEROL 252 mg/dL; CREATININE 0.7 mg/dL (0.4-1.0); GFR - MDRD 84 (>89); GLUCOSE 122 mg/dL (70-100); HDL CHOLESTEROL 76 mg/dL; LDL CHOLESTEROL,CALCULATED 153 mg/dL; POTASSIUM 3.9 mmol/L (3.5-5.0); SODIUM 137 mmol/L (135-145); TOTAL PROTEIN 7.6 g/dL (6.7-8.2); TRIGLYCERIDES 114 mg/dL; VLDL CHOLESTEROL 23 mg/dL
[2021-10-06 12:58] LABS: THYROID STIMULATING HORMONE 1.22 uIU/mL (0.34-5.60)
[2021-10-06 13:24] LABS: ESTIMATED AVERAGE GLUCOSE 111 mg/dL (70-100); HEMOGLOBIN A1c% 5.5 % (4.27-6.07)
== END 2021-10-06 08:10 | disposition home or self-care (01) ==
LOC: LAB.N 08:09
PROVIDERS: ATTEND Nurse Practitioner Family
DX: R41.3 Other amnesia (principal); E66.9 Obesity, unspecified; Z13.21 Encounter for screening for nutritional disorder; Z13.1 Encounter for screening for diabetes mellitus
CPT/HCPCS: 36415; 80053; 80061; 82306; 83036; 83721; 84443; 85025

== ENCOUNTER 2022-03-12 12:38 | Outpatient (CLI) | payer OTHER ==
[2022-03-12 17:39] LABS: BASOPHILS # (AUTO) 0.1 10^3/uL (0.0-0.1); BASOPHILS % (AUTO) 0.9 %; EOSINOPHILS # (AUTO) 0.2 10^3/uL (0.0-0.7); EOSINOPHILS % (AUTO) 2.9 %; HCT - HEMATOCRIT 41.8 % (37.0-47.0); HGB - HEMOGLOBIN 13.7 g/dL (12.0-16.0); LYMPHOCYTES # (AUTO) 1.8 10^3/uL (1.5-3.5); LYMPHOCYTES % (AUTO) 25.9 %; MEAN CORPUSCULAR HEMOGLOBIN 31.1 pg (27.0-31.0); MEAN CORPUSCULAR HGB CONC 32.8 g/dL (32.0-36.0); MEAN CORPUSCULAR VOLUME 94.8 fL (81.0-99.0); MEAN PLATELET VOLUME 10.5 fL (7.9-10.8); MONOCYTES # (AUTO) 0.7 10^3/uL (0.0-1.0); MONOCYTES % (AUTO) 9.4 %; NEUTROPHILS # (AUTO) 4.2 10^3/uL (1.5-6.6); NEUTROPHILS % (AUTO) 60.8 %; PLT - PLATELET COUNT 407 10^3/uL (130-450); RED BLOOD COUNT 4.41 10^6/uL (4.20-5.40); RED CELL DISTRIBUTION WIDTH 12.8 % (12.0-15.0); WHITE BLOOD COUNT 6.9 x10^3/uL (4.8-10.8)
[2022-03-12 17:53] LABS: ALBUMIN 4.8 g/dL (3.2-5.5); ALBUMIN/GLOBULIN RATIO 1.8 (1.0-2.2); BILIRUBIN,TOTAL 0.6 mg/dL (0.2-1.0); CALCIUM 9.8 mg/dL (8.5-10.3); CREATININE 0.9 mg/dL (0.4-1.0); POTASSIUM 3.8 mmol/L (3.5-5.0); TOTAL PROTEIN 7.5 g/dL (6.7-8.2)
== END 2022-03-12 12:39 | disposition home or self-care (01) ==
LOC: LAB.N 12:38
PROVIDERS: ATTEND Nurse Practitioner Family
DX: R41.3 Other amnesia (principal)
CPT/HCPCS: 36415; 80053; 82607; 82746; 85025

== ENCOUNTER 2022-06-12 14:15 | Outpatient (CLI) | payer MEDICARE ==
--- NOTE | 2022-06-15 15:18 | Mammography Report ---
BILATERAL DIGITAL SCREENING MAMMOGRAM 3D/2D: 06/12/2022 CLINICAL: Routine screening. Comparison is made to exams dated: 11/28/2020 mammogram, 07/15/2018 mammogram, 05/02/2017 mammogram, mammogram - [facility], and 05/20/2015 mammogram - [facility]. There are scattered areas of fibroglandular density in both breasts (category b / 25%-50% glandular t issue). No significant masses, calcifications, or other findings are seen in either breast. There has been no significant interval change. IMPRESSION: NEGATIVE There is no mammographic evidence of malignancy. A 1 year screening mammogram is recommended. This exam was interpreted at Station ID: [id number]. NOTE: For mammograms, a report in lay terms will be sent to the patient. Approximately 15% of breast malignancies will not be visualized mammographically. In the management of a palpable breast mass, a negative mammogram must not discourage biopsy of a clinically suspicious lesion. Electronically Signed By: Grant chaudhry/penjacky:06/14/2022 16:43:48 ACR BI-RADS Category 1: Negative 3341F PARENCHYMAL PATTERN: (A) - The breast(s) demonstrate(s) scattered fibroglandular densities. BI-RADS CATEGORY: (1) - 1 RECOMMENDATION: (ANNUAL) - Recommend routine annual screening mammography. [id number] 1 year screening LATERALITY: (B)
== END 2022-06-12 14:16 | disposition home or self-care (01) ==
LOC: DI 14:15
PROVIDERS: ATTEND Nurse Practitioner Family
DX: Z12.31 Encounter for screening mammogram for malignant neoplasm of breast (principal)

== ENCOUNTER 2022-06-12 14:18 | Outpatient (CLI) | payer MEDICARE ==
--- NOTE | 2022-06-12 15:17 | DEXA Report ---
PROCEDURE: Dexa Spine and/or Hip INDICATIONS: POSTMENOPAUSAL TECHNIQUE: Dual energy x-ray absorptiometry (DXA) was performed on a Datalink System. Regions measur ed are the AP Spine, femoral neck, and if needed forearm. COMPARISON: None. FINDINGS: L1 was excluded. Lumbar Spine: Bone Mineral Density 1.4 g/cm/cm,T score 2.4, Left Hip: Bone Mineral Density 1 g/cm/cm,T score 0, Left Femoral Neck: Bone Mineral Density 0.97 g/cm/cm, T score -0.5, (T score greater or equal to -1.0: NORMAL) (T score from -1.1 to -2.4: OSTEOPENIA) (T score less than or equal to -2.5 to: OSTEOPOROSIS) Impression: No osteopenia or osteoporosis. Greater than expected density in the lumbar spine could be due to scle rosis. Patients with diagnosis of osteoporosis or osteopenia should have regular bone mineral density assess ment. For those eligible for Medicare, routine testing is allowed once every 2 years. Testing frequ ency can be increased for patients who have rapidly progressing disease or for those who are receivin g medical therapy to restore bone mass. Reviewed by: Grant Perla MD on 06/12/2022 3:16 PM PDT Approved by: Grant Perla MD on 06/12/2022 3:16 PM PDT Station ID: [id number]
== END 2022-06-12 14:19 | disposition home or self-care (01) ==
LOC: DI 14:18
PROVIDERS: ATTEND Nurse Practitioner Family
DX: E55.9 Vitamin D deficiency, unspecified (principal); Z78.0 Asymptomatic menopausal state

== ENCOUNTER 2023-05-30 09:31 | Outpatient (CLI) | payer MEDICARE ==
[2023-05-30 12:23] LABS: BASOPHILS # (AUTO) 0.1 10^3/uL (0.0-0.1); BASOPHILS % (AUTO) 1.1 %; EOSINOPHILS # (AUTO) 0.4 10^3/uL (0.0-0.7); EOSINOPHILS % (AUTO) 4.8 %; HCT - HEMATOCRIT 42.1 % (37.0-47.0); HGB - HEMOGLOBIN 13.5 g/dL (12.0-16.0); LYMPHOCYTES % (AUTO) 24.4 %; MEAN CORPUSCULAR HEMOGLOBIN 30.3 pg (27.0-31.0); MEAN CORPUSCULAR HGB CONC 32.1 g/dL (32.0-36.0); MEAN CORPUSCULAR VOLUME 94.6 fL (81.0-99.0); MEAN PLATELET VOLUME 10.4 fL (7.9-10.8); MONOCYTES # (AUTO) 0.6 10^3/uL (0.0-1.0); MONOCYTES % (AUTO) 7.4 %; NEUTROPHILS % (AUTO) 61.9 %; PLT - PLATELET COUNT 401 10^3/uL (130-450); RED BLOOD COUNT 4.45 10^6/uL (4.20-5.40)
[2023-05-30 12:24] LABS: ALBUMIN 4.8 g/dL (3.2-5.5); ALBUMIN/GLOBULIN RATIO 2.2 (1.0-2.2); ALKALINE PHOSPHATASE 77 IU/L (42-121); ALT ALANINE AMINOTRANSFERASE 20 IU/L (10-60); AST ASPARTATE AMINOTRANSFERASE 17 IU/L (10-42); BILIRUBIN,TOTAL 0.5 mg/dL (0.2-1.0); BUN - BLOOD UREA NITROGEN 22 mg/dL (6-20); CALCIUM 9.9 mg/dL (8.5-10.3); CARBON DIOXIDE - CO2 31 mmol/L (21-32); CHLORIDE 99 mmol/L (101-111); CHOL/HDL RATIO 3.1 (<4.4); CHOLESTEROL 184 mg/dL; CREATININE 0.8 mg/dL (0.6-1.3); GFR - MDRD 72 (>89); GLUCOSE 97 mg/dL (74-104); HDL CHOLESTEROL 60 mg/dL; LDL CHOLESTEROL,CALCULATED 99 mg/dL; LDL/HDL RATIO 1.7 (<4.4); POTASSIUM 3.7 mmol/L (3.5-4.5); SODIUM 137 mmol/L (135-145); TRIGLYCERIDES 124 mg/dL (48-352); VLDL CHOLESTEROL 25 mg/dL
== END 2023-05-30 09:32 | disposition home or self-care (01) ==
LOC: LAB.N 09:31
PROVIDERS: ATTEND Physician Assistant Medical
DX: I10 Essential (primary) hypertension (principal); E78.2 Mixed hyperlipidemia; E03.9 Hypothyroidism, unspecified
CPT/HCPCS: 36415; 80053; 80061; 83721; 84443; 85025

== ENCOUNTER 2023-10-04 09:02 | Outpatient (CLI) | payer MEDICARE ==
--- NOTE | 2023-10-07 08:34 | Mammography Report ---
BILATERAL DIGITAL SCREENING MAMMOGRAM 3D/2D: 10/04/2023 CLINICAL: Routine screening. Personal history of left breast cancer. Comparison is made to exams dated: 06/12/2022 mammogram - [facility], 11/28/2020 [facility] mogram, 07/15/2018 mammogram, 05/02/2017 mammogram, 11/06/2016 mammogram - [facility], and 1 mammogram - [facility]. There are scattered areas of fibroglandular density in both breasts (category b / 25%-50% glandular t issue). There are benign calcifications in the left breast. No significant masses, calcifications, or other findings are seen in either breast. There has been no significant interval change. IMPRESSION: BENIGN There is no mammographic evidence of malignancy. A 1 year screening mammogram is recommended. This exam was interpreted at Station ID: [id number]. NOTE: For mammograms, a report in lay terms will be sent to the patient. Approximately 15% of breast malignancies will not be visualized mammographically. In the management of a palpable breast mass, a negative mammogram must not discourage biopsy of a clinically suspicious lesion. Electronically Signed By: Laith Sweeney M.D. [facility] [place]:10/04/2023 20:36:46 letter sent: No_Letter ACR BI-RADS Category 2: Benign Finding(s) 3342F PARENCHYMAL PATTERN: (A) - The breast(s) demonstrate(s) scattered fibroglandular densities. BI-RADS CATEGORY: (2) - 2 Mammogram [id number] 1 year screening LATERALITY: (B)
== END 2023-10-04 09:03 | disposition home or self-care (01) ==
LOC: DI 09:02
DX: Z12.31 Encounter for screening mammogram for malignant neoplasm of breast (principal); Z85.3 Personal history of malignant neoplasm of breast; R92.323 Mammographic fibroglandular density, bilateral breasts; R92.1 Mammographic calcification found on diagnostic imaging of breast

== ENCOUNTER 2024-03-19 10:51 | Outpatient (CLI) | payer MEDICARE ==
--- NOTE | 2024-03-19 21:51 | XRAY Report ---
PROCEDURE: Cervical Spine 2-3V INDICATIONS: DJD CERVICAL SPINE TECHNIQUE: 3 view(s) of the cervical spine were acquired. COMPARISON: 10/02/2019 FINDINGS: Bones: No fractures or dislocations to the C7 level. Mild multilevel uncovertebral joint hypertroph y from C3-4 through C5-6. Moderate anterior endplate spurs are stable. Moderate multilevel disc heigh t loss from C3 to C7. The lateral masses of C1 appear intact on the odontoid view. No suspicious bon y lesions. Soft tissues: No prevertebral soft tissue swelling. Mild left carotid atherosclerotic calcification . IMPRESSION: No significant progression of multilevel moderate disc and endplate degeneration. Reviewed by: Malissa Verde MD on 03/19/2024 9:50 PM PDT Approved by: Malissa Verde MD on 03/19/2024 9:50 PM PDT Station ID: [id number]
--- NOTE | 2024-03-19 21:52 | XRAY Report ---
PROCEDURE: Shoulder 2+V BL INDICATIONS: LEFT SHOULDER PAIN, RIGHT SCAPULALGIA TECHNIQUE: 3 views of the shoulder were acquired. COMPARISON: None. FINDINGS: Bones: No fractures or dislocations. No suspicious bony lesions. Mild left AC joint degeneration. Mild right humeral joint degeneration. Visualized ribs appear intact. Soft tissues: No suspicious soft tissue calcifications. The visualized lungs are within normal limi ts. IMPRESSION: Mild bilateral shoulder degeneration. Reviewed by: Malissa Verde MD on 03/19/2024 9:51 PM PDT Approved by: Malissa Verde MD on 03/19/2024 9:51 PM PDT Station ID: [id number]
== END 2024-03-19 10:52 | disposition home or self-care (01) ==
LOC: DI 10:51
PROVIDERS: ATTEND Physician Assistant Medical
DX: M47.892 Other spondylosis, cervical region (principal); M19.012 Primary osteoarthritis, left shoulder; M19.011 Primary osteoarthritis, right shoulder